=== PATIENT | female | born 1950 | race Caucasian/White ===

== ENCOUNTER 2016-07-23 17:58 | Emergency (ER) | payer OTHER ==
[~2016-07-23 17:58] MED LIST: CALC500T19 PO; FISH100020 PO; GLIP5 PO; HYDR-3535 PO; METF500 PO; TAB-TAB PO
== END 2016-07-23 18:30 | disposition left against medical advice (07) ==
LOC: PHED 17:58
DX: H57.12 Ocular pain, left eye (principal)
CPT/HCPCS: 99281